=== PATIENT | female | born 1955 | race American Indian/Alaskan Native ===

== ENCOUNTER 2017-07-28 08:45 | Day surgery (SDC) | payer OTHER ==
[2017-07-22 12:15] VITALS: BMI 43.8
[2017-07-28] MEDS ORDERED: Midazolam 2 MG/2 ML VIAL ONE (10:56)
[2017-07-28] MEDS ORDERED: Propofol 10 mg/ml Inj (20 ML) ONE (10:56)
[2017-07-28] MEDS ORDERED: Lidocaine 1% Inj (20ml) ONE (11:09)
[2017-07-28] MEDS ORDERED: Bupivacaine HCl 0.25% PF (10 ml) Inj ONE ×2 (11:09)
[2017-07-28] MEDS ORDERED: ceFAZolin IV 1 gm in Dextrose 2 GM/100 ML BAG IVPB ONE (11:09)
[2017-07-28] MEDS ORDERED: Bacitracin 500 Units/gm Oint Foilpak UD ONE (11:41)
[2017-07-28] MEDS ORDERED: Oxycodone/Acetaminophen 5/325 mg Tab PO PRN (11:49)
[2017-07-28] MEDS ORDERED: HYDROmorphone 0.5 mg/0.5 ml ISec IVP PRN (11:51)
[2017-07-28 13:43] VITALS: RESP 16; O2SAT 96
[2017-07-28 13:49] VITALS: TEMP 97.8
[2017-07-28 14:10] VITALS: BP 149/99; PULSE 67
--- NOTE | 2017-07-28 21:37 | OP ---
PROCEDURE DATE: 07/28/2017 PREOPERATIVE DIAGNOSIS: Acute mass on the posterior neck. POSTOPERATIVE DIAGNOSIS: Acute mass on the posterior neck. PROCEDURE: Wide and deep excision of infected mass at the posterior neck with adjacent tissue transfer closure. SURGEON: Nelson Baez MD TYPE OF ANESTHESIA: General endotracheal. ESTIMATED BLOOD LOSS: 30 mL. POSTOPERATIVE CONDITION: Stable. INDICATIONS FOR SURGERY: This is a 61-year-old female with large infected posterior neck mass, who now undergoes a wide and deep excision. DESCRIPTION OF PROCEDURE: The patient was taken to the operating room, placed in a prone position with the neck flexed and the posterior neck extended. IV sedation was administered and the posterior neck area was prepped and draped. A generous elliptical incision was made surrounding the mass. It was carried down into the fascial layer completely removed. Bleeding was controlled using the Bovie. A larger blood vessel was repaired. The wound was irrigated with copious amounts of saline. Generous tissue flaps were raised using a Bovie and an advancement flap closure was performed using multiple layers of Monocryl, subcuticular Monocryl, and skin clips. The patient tolerated the procedure well and returned to the recovery room in stable condition. Nelson Baez MD
== END 2017-07-28 14:12 | disposition home or self-care (01) ==
LOC: C.SDS 08:45
PROVIDERS: ATTEND Surgery
DX: L72.0 Epidermal cyst (principal)
CPT/HCPCS: 11423; 13132; 82948; 87070; 87181; 88307; J0690; J2250; J2704; J3010